=== PATIENT | male | born 1955 | race Caucasian/White ===

== ENCOUNTER 2019-08-14 14:06 | Outpatient (CLI) | payer BC, SELFPAY ==
--- NOTE | 2019-08-14 14:19 | XR_ITS ---
WS: [id number] RIGHT HAND: 3 VIEW(S) TECHNIQUE: PA, oblique and lateral. HISTORY: HAND PAIN RIGHT COMPARISON: None available. No acute fracture or dislocation. Mild narrowing of the distal radial ulnar joint. Metallic foreign body measuring 5 mm in the soft tis sues adjacent to the proximal phalanx of the first digit. 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
--- NOTE | 2019-08-14 14:19 | XR_ITS ---
WS: [id number] RIGHT FOREARM 2 VIEWS HISTORY: FOREARM PAIN RIGHT COMPARISON: None available. No fracture or dislocation. No foreign body or joint effusion. Mild narrowing of the distal radial ulnar joint. XR/XR forearm RT 2V [id number] IMPRESSION: Mild degenerative changes at distal radial ulnar joint.
== END 2019-08-14 14:07 | disposition home or self-care (01) ==
LOC: RADWPI 14:14
PROVIDERS: Family Provider Family Medicine; PCP Family Medicine; Visit Provider Family Medicine
DX: M79.631 Pain in right forearm (principal); M79.641 Pain in right hand
CPT/HCPCS: 73090; 73130

== ENCOUNTER → 2023-01-17 13:31 | Outpatient (BNVA) | payer MEDICARE, SELFPAY | PROVIDERS: Family Provider Family Medicine; PCP Family Medicine; Visit Provider Family Medicine | DX: L98.9 Disorder of the skin and subcutaneous tissue, unspecified (principal) | CPT/HCPCS: 88304 ==

== ENCOUNTER → 2023-02-23 10:43 | Outpatient (BNVA) | payer MEDICARE, SELFPAY | PROVIDERS: Family Provider Family Medicine; PCP Family Medicine; Visit Provider Dermatology | DX: B35.4 Tinea corporis (principal); D04.61 Carcinoma in situ of skin of right upper limb, including shoulder; D18.01 Hemangioma of skin and subcutaneous tissue; L81.4 Other melanin hyperpigmentation; L82.1 Other seborrheic keratosis | CPT/HCPCS: 17000; 99204 ==

== ENCOUNTER → 2023-04-07 10:58 | Outpatient (BNVA) | payer MEDICARE, SELFPAY | PROVIDERS: Family Provider Family Medicine; PCP Family Medicine; Visit Provider Dermatology | DX: B35.4 Tinea corporis (principal); D04.61 Carcinoma in situ of skin of right upper limb, including shoulder; L57.0 Actinic keratosis | CPT/HCPCS: 17000; 99213 ==

== ENCOUNTER → 2023-08-01 14:27 | Outpatient (BNVA) | payer MEDICARE, SELFPAY | PROVIDERS: Family Provider Family Medicine; PCP Family Medicine; Visit Provider Dermatology | DX: B35.4 Tinea corporis (principal); L82.0 Inflamed seborrheic keratosis; L57.0 Actinic keratosis; L57.8 Other skin changes due to chronic exposure to nonionizing radiation; L81.4 Other melanin hyperpigmentation; Z85.828 Personal history of other malignant neoplasm of skin | CPT/HCPCS: 17000; 17110; 99213 ==

== ENCOUNTER → 2024-03-05 10:34 | Outpatient (BNVA) | payer MEDICARE, SELFPAY | PROVIDERS: Family Provider Family Medicine; PCP Family Medicine; Visit Provider Family Medicine | DX: Z51.81 Encounter for therapeutic drug level monitoring (principal); Z00.00 Encounter for general adult medical examination without abnormal findings; R35.0 Frequency of micturition; R73.09 Other abnormal glucose; E55.9 Vitamin D deficiency, unspecified | CPT/HCPCS: 80053; 80061; 82306; 83036; 84153; 85025 ==

== ENCOUNTER → 2024-07-31 13:45 | Outpatient (BNVA) | payer MEDICARE, SELFPAY | PROVIDERS: Family Provider Family Medicine; PCP Family Medicine; Visit Provider Nurse Practitioner Family | DX: L81.4 Other melanin hyperpigmentation (principal); L57.8 Other skin changes due to chronic exposure to nonionizing radiation; Z08 Encounter for follow-up examination after completed treatment for malignant neoplasm; Z85.828 Personal history of other malignant neoplasm of skin; L57.0 Actinic keratosis | CPT/HCPCS: 17000; 99213 ==